=== PATIENT | female | born 1985 | race Two or more races ===

== ENCOUNTER 2017-01-02 21:46 | Observation (INO) | payer MEDICAID | END 2017-01-02 23:06 | disposition home or self-care (01) | DRG 566 | LOC: LDRP 21:46 | PROVIDERS: ADMIT Specialist; ATTEND Specialist | DX: O62.9 Abnormality of forces of labor, unspecified (principal); Z3A.36 36 weeks gestation of pregnancy | CPT/HCPCS: 59025; 81002; G0378 ==